=== PATIENT | male | born 2000 | race Asian ===

== ENCOUNTER 2023-07-27 11:43 | Emergency (ER) | payer OTHER ==
[~2023-07-27] VITALS: Ht 165.1 cm; Wt 93.7 kg
[2023-07-27] MEDS ORDERED: ONDA4TAB6 PO (17:17)
[2023-07-27] MEDS: ONDANSETRON 4MG ORAL DISINTEGRATING TAB PO ONE (17:25)
[2023-07-27 17:28] VITALS: BP 139/96; TEMP 98; O2SAT 97
== END 2023-07-27 17:29 | disposition home or self-care (01) ==
LOC: M ED 11:43
DX: S06.0X0A Concussion without loss of consciousness, initial encounter (principal); W00.0XXA Fall on same level due to ice and snow, initial encounter; Z79.83 Long term (current) use of bisphosphonates; Y92.9 Unspecified place or not applicable; Y93.89 Activity, other specified; Y99.9 Unspecified external cause status